=== PATIENT | male | born 1995 | race Caucasian/White ===

== ENCOUNTER 2017-05-07 18:21 | Emergency (ER) | payer MEDICAID ==
--- NOTE | 2017-05-07 20:10 | ED Physician Documentation ---
History of Present Illness - Stated complaint Stated Complaint: RIB PX - Chief complaint Chief Complaint: Resp - History obtained from History obtained from: Patient - History of Present Illness Timing: Enter time (17:00), Today Pain level max: 10 Pain level now: 10 Improved by: rest Worsened by: movement, deep breath in - Additonal information Additional information: c/o left anterolateral chest wall pain since 5 PM. No recent injury. He has been helping build a house, involving a lot of moving of heavy boards, but this was at least one week ago Review of Systems Constitutional: denies: Fever Cardiac: reports: Chest pain / pressure. denies: Palpitations Respiratory: denies: Dyspnea, Cough, Hemoptysis GI: denies: Abdominal Pain, Nausea, Vomiting Skin: denies: Rash Musculoskeletal: denies: Extremity swelling PD PAST MEDICAL HISTORY - Past Medical History Past Medical History: Yes Respiratory: Asthma - Past Surgical History Past Surgical History: No - Present Medications Home Medications: Ambulatory Orders Medication Instructions Recorded Confirmed Albuterol 2.5 mg INH Q4H PRN 05/07/17 05/07/17 Fluticasone 44 Mcg [Flovent] 120 puffs INH 05/07/17 HYDROcod/ACETAM 5/325 [[place] 5/325] 1 - 2 ea PO Q6H PRN #15 tablet 05/07/17 - Allergies Allergies/Adverse Reactions: Allergies Allergy/AdvReac Type Severity Reaction Status Date / Time No Known Drug Allergies Allergy Verified 05/07/17 18:33 - Social History Does the pt smoke?: No Smoking Status: Former smoker Does the pt drink ETOH?: No Does the pt have substance abuse?: No - Immunizations Immunizations are current?: Yes PD ED PE NORMAL - Vitals Vital signs reviewed: Yes - General General: Alert and oriented X 3, No acute distress, Well developed/nourished - Cardiac Cardiac: RRR, No murmur, No gallop, No rub - Respiratory Respiratory: No respiratory distress, Clear bilaterally - Abdomen Abdomen: Soft, Non tender, Non distended - Back Back: No CVA TTP, No spinal TTP - Derm Derm: No rash - Free text exam Free text exam: mild-moderate tenderness left anterolateral chest wall without crepitus, echymosis, or 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 Results - Vitals Vitals: Vital Signs - 24 hr 05/07/17 05/07/17 18:30 20:54 Temperature 36.9 C 37.0 C Heart Rate 93 76 Respiratory 16 18 Rate Blood Pressure 142/86 H 131/84 H O2 Saturation 98 100 Oxygen O2 Source Room air - Rads (name of study) chest xray Radiology: Prelim report reviewed, See rad report PD MEDICAL DECISION MAKING - ED course Complexity details: reviewed results, re-evaluated patient, considered differential, d/w patient Departure - Departure Disposition: Home, Self Care Clinical Impression: Chest pain Qualifiers: Chest pain type: unspecified Qualified Code(s): R07.9 - Chest pain, unspecified Condition: Good Instructions: ED Strain Chest Wall Follow-Up: [facility] [Provider Group] [facility] [Provider Group] Prescriptions: HYDROcod/ACETAM 5/325 [Union 5/325] 1 - 2 ea PO Q6H PRN #15 tablet PRN Reason: Pain Discharge Date/Time: 05/07/17 20:55
--- NOTE | 2017-05-07 20:12 | XRAY Report ---
EXAM: CHEST RADIOGRAPHY EXAM DATE: 05/07/2017 07:32 PM. CLINICAL HISTORY: Rib pain. COMPARISON: None. TECHNIQUE: 2 views. FINDINGS: Lungs/Pleura: No focal opacities evident. No pleural effusion. No pneumothorax. Normal volumes. Mediastinum: Heart and mediastinal contours are unremarkable. Upper lobe vessels not distended. Other: None. IMPRESSION: Normal 2-view chest radiography. [facility] Referring Provider Line: [phone] SITE ID: [id number]
[2017-05-07] MEDS ORDERED: HYDROcod/ACET 5/325 Prepack 6 PO STA (20:32)
[2017-05-07 20:55] VITALS: BP 131/84
== END 2017-05-07 20:55 | disposition home or self-care (01) ==
LOC: ED 18:21
DX: R07.9 Chest pain, unspecified (principal); Z87.891 Personal history of nicotine dependence
CPT/HCPCS: 71046; 99283

== ENCOUNTER 2017-09-14 09:56 | Outpatient (CLI) | payer MEDICAID | END 2017-09-14 09:57 | disposition EMS.NT | LOC: EMS 09:56 | PROVIDERS: ATTEND Surgery | DX: R06.00 Dyspnea, unspecified (principal) ==

== ENCOUNTER 2019-01-21 16:31 | Outpatient (CLI) | payer MEDICAID | END 2019-01-21 16:32 | disposition critical access hospital (66) | LOC: EMS 16:31 | PROVIDERS: ATTEND Surgery | DX: R06.00 Dyspnea, unspecified (principal); R07.89 Other chest pain | CPT/HCPCS: A0425; A0427; A0999 ==

== ENCOUNTER 2019-01-21 17:02 | Emergency (ER) | payer MEDICAID ==
[2019-01-21] MEDS ORDERED: predniSONE 20 MG TABLET PO STA (17:07)
[2019-01-21 17:09] VITALS: BP 142/75
--- NOTE | 2019-01-21 17:09 | ED Physician Documentation ---
PD HPI DYSPNEA - Stated complaint Stated Complaint: ASTHMA - History obtained from History obtained from: Patient, EMS - History of Present Illness Timing - onset: Today (23-year-old gentleman with history of asthma, never hospitalized for same. He ran out of his inhaler a couple of weeks ago. His morning he woke up and he was wheezing and short of breath. For ambulance on the way and his vital signs were normal. He received a DuoNeb in route and feels better.) Review of Systems Constitutional: denies: Fever, Chills Nose: denies: Rhinorrhea / runny nose, Congestion Throat: denies: Sore throat Cardiac: denies: Chest pain / pressure, Palpitations Respiratory: reports: Dyspnea, Cough. denies: Hemoptysis PD PAST MEDICAL HISTORY - Past Medical History Respiratory: Asthma - Past Surgical History Past Surgical History: No - Present Medications Home Medications: Ambulatory Orders Medication Instructions Recorded Confirmed Albuterol 2.5 mg INH Q4H PRN 05/07/17 05/07/17 Fluticasone 44 Mcg [Flovent] 120 puffs INH 05/07/17 HYDROcod/ACETAM 5/325 [[place] 5/325] 1 - 2 ea PO Q6H PRN #15 tablet 05/07/17 Albuterol Sulf [Ventolin Hfa 1 - 2 puffs INH Q4HR PRN #1 inhaler 01/21/19 Inhaler] predniSONE [Deltasone] 60 mg PO DAILY 5 Days #15 tablet 01/21/19 - Allergies Allergies/Adverse Reactions: Allergies Allergy/AdvReac Type Severity Reaction Status Date / Time No Known Drug Allergies Allergy Verified 05/07/17 18:33 - Social History Does the pt smoke?: No Smoking Status: Former smoker Does the pt drink ETOH?: No Does the pt have substance abuse?: No - Immunizations Immunizations are current?: Yes PD ED PE NORMAL - Vitals Vital signs reviewed: Yes - General General: Alert and oriented X 3, No acute distress - HEENT HEENT: Pharynx benign - Neck Neck: Supple, no meningeal sign, No bony TTP - Cardiac Cardiac: RRR, No murmur - Respiratory Respiratory: No respiratory distress, Clear bilaterally - Abdomen Abdomen: Non tender - Derm Derm: No rash - Extremities Extremities: No edema, No calf tenderness / cord - Neuro Neuro: Alert and oriented X 3, Normal speech Results - Vitals Vitals: Oxygen O2 Source Room air PD MEDICAL DECISION MAKING - ED course ED course: Came in by ambulance, at this point his lungs are clear after the DuoNeb and he feels better. Departure - Departure Disposition: 01 Home, Self Care Clinical Impression: Asthma exacerbation Qualifiers: Asthma severity: mild Asthma persistence: intermittent Qualified Code(s): J45.21 - Mild intermittent asthma with (acute) exacerbation Condition: Good Record reviewed to determine appropriate education?: Yes Instructions: Asthma Dc Prescriptions: Albuterol Sulf [Ventolin Hfa Inhaler] 1 - 2 puffs INH Q4HR PRN #1 inhaler PRN Reason: Shortness Of Air/Wheezing predniSONE [Deltasone] 60 mg PO DAILY 5 Days #15 tablet Comments: Call your doctor to arrange a follow-up appointment, make the next available appointment. In the interim, return anytime if worse or if new symptoms develop.
== END 2019-01-21 17:24 | disposition home or self-care (01) ==
LOC: EDUNIT# → ED 17:02
DX: J45.21 Mild intermittent asthma with (acute) exacerbation (principal); Z87.891 Personal history of nicotine dependence
CPT/HCPCS: 99283; J7512

== ENCOUNTER 2019-02-23 10:36 | Outpatient (CLI) | payer MEDICARE, MEDICAID ==
[2019-02-23 17:47] LABS: ALBUMIN 4.6 g/dL (3.2-5.5); ALBUMIN/GLOBULIN RATIO 1.8 (1.0-2.2); BILIRUBIN,TOTAL 0.5 mg/dL (0.2-1.0); CALCIUM 8.8 mg/dL (8.5-10.3); CREATININE 0.8 mg/dL (0.6-1.2); TOTAL PROTEIN 7.2 g/dL (6.7-8.2)
== END 2019-02-23 10:37 | disposition home or self-care (01) ==
LOC: LAB.S 10:36
PROVIDERS: ATTEND Physician Assistant Medical
DX: Z51.81 Encounter for therapeutic drug level monitoring (principal); Z79.899 Other long term (current) drug therapy; E55.9 Vitamin D deficiency, unspecified
CPT/HCPCS: 36415; 80053; 82306

== ENCOUNTER 2021-01-19 09:12 | Outpatient (CLI) | payer MEDICARE, MEDICAID ==
[2021-01-19 15:17] LABS: BUN - BLOOD UREA NITROGEN 10 mg/dL (6-20); CALCIUM 9.1 mg/dL (8.5-10.3); CARBON DIOXIDE - CO2 26 mmol/L (21-32); CHLORIDE 103 mmol/L (101-111); CHOL/HDL RATIO 6.1 (<5.0); CHOLESTEROL 212 mg/dL; CREATININE 0.7 mg/dL (0.6-1.2); GFR - MDRD 139 (>89); GLUCOSE 90 mg/dL (70-100); HDL CHOLESTEROL 35 mg/dL; LDL CHOLESTEROL,CALCULATED 129 mg/dL; LDL/HDL RATIO 3.7 (<3.6); POTASSIUM 4.3 mmol/L (3.5-5.0); SODIUM 140 mmol/L (135-145); TRIGLYCERIDES 238 mg/dL; VLDL CHOLESTEROL 48 mg/dL
[2021-01-19 20:10] LABS: ESTIMATED AVERAGE GLUCOSE 97 mg/dL (70-100)
== END 2021-01-19 09:13 | disposition home or self-care (01) ==
LOC: LAB.S 09:12
PROVIDERS: ATTEND Psychiatry & Neurology Psychiatry
DX: F63.81 Intermittent explosive disorder (principal); F31.81 Bipolar II disorder; Z79.899 Other long term (current) drug therapy
CPT/HCPCS: 36415; 80048; 80061; 83036; 83721

== ENCOUNTER 2022-06-26 09:16 | Outpatient (CLI) | payer MEDICARE, MEDICAID ==
[2022-06-26 15:39] LABS: BASOPHILS # (AUTO) 0.1 10^3/uL (0.0-0.1); BASOPHILS % (AUTO) 1.5 %; EOSINOPHILS # (AUTO) 0.6 10^3/uL (0.0-0.7); EOSINOPHILS % (AUTO) 9.3 %; HCT - HEMATOCRIT 48.6 % (42.0-52.0); HGB - HEMOGLOBIN 16.5 g/dL (14.0-18.0); LYMPHOCYTES # (AUTO) 1.9 10^3/uL (1.5-3.5); LYMPHOCYTES % (AUTO) 28.8 %; MEAN CORPUSCULAR VOLUME 94.4 fL (80.0-94.0); MEAN PLATELET VOLUME 10.8 fL (7.4-11.4); MONOCYTES # (AUTO) 0.7 10^3/uL (0.0-1.0); MONOCYTES % (AUTO) 10.4 %; NEUTROPHILS # (AUTO) 3.3 10^3/uL (1.5-6.6); NEUTROPHILS % (AUTO) 49.7 %; PLT - PLATELET COUNT 222 10^3/uL (130-450); RED BLOOD COUNT 5.15 10^6/uL (4.70-6.10); RED CELL DISTRIBUTION WIDTH 12.5 % (12.0-15.0); WHITE BLOOD COUNT 6.6 x10^3/uL (4.8-10.8)
[2022-06-26 16:16] LABS: ALBUMIN 4.3 g/dL (3.2-5.5); ALBUMIN/GLOBULIN RATIO 1.4 (1.0-2.2); BILIRUBIN,TOTAL 0.7 mg/dL (0.2-1.0); CREATININE 0.8 mg/dL (0.6-1.2); POTASSIUM 4.5 mmol/L (3.5-5.0); TOTAL PROTEIN 7.4 g/dL (6.7-8.2)
== END 2022-06-26 09:17 | disposition home or self-care (01) ==
LOC: LAB.S 09:16
PROVIDERS: ATTEND Registered Nurse
DX: R03.0 Elevated blood-pressure reading, without diagnosis of hypertension (principal); Z79.899 Other long term (current) drug therapy
CPT/HCPCS: 36415; 80053; 85025

== ENCOUNTER 2023-01-24 14:40 | Outpatient (CLI) | payer MEDICARE, MEDICAID | END 2023-01-24 14:41 | disposition EMS.NT | LOC: EMS 14:40 | DX: R53.1 Weakness (principal); R07.9 Chest pain, unspecified ==

== ENCOUNTER 2023-01-26 08:01 | Emergency (ER) | payer MEDICARE, MEDICAID ==
[2023-01-26] MEDS ORDERED: ONDANSETRON 4 MG/2 ML VIAL IVP STA (08:16)
[2023-01-26] MEDS ORDERED: KETOROLAC 15 MG/ML VIAL IVP STA (08:16)
[2023-01-26] MEDS ORDERED: SODIUM CHLORIDE 0.9% 1,000 ML IV STA (08:16)
--- NOTE | 2023-01-26 08:17 | ED Physician Documentation ---
PD HPI ABD PAIN - Stated complaint Stated Complaint: N/V - Chief complaint Chief Complaint: Abd Pain - History obtained from History obtained from: Patient, Family - Additional information Additional information: 27-year-old gentleman with history of psychiatric disease on Risperdal and Depakote, daily marijuana use, and somewhat heavy alcohol use lately. He was last sober 5 days ago. In the interim he has had between 2-5 drinks a day. He woke up this morning at 12:40 AM with diarrhea and vomiting and stomach cramps which have since resolved. No sick contacts. No fevers. PD PAST MEDICAL HISTORY - Past Medical History Past Medical History: Yes Respiratory: Asthma Psych: Depression, Anxiety, Bipolar disorder - Past Surgical History Past Surgical History: No - Present Medications Home Medications: Ambulatory Orders Medication Instructions Recorded Confirmed Divalproex Sodium [Depakote ER] 500 mg PO DAILY 01/26/23 01/26/23 Ondansetron Odt [Zofran] 4 mg TL Q6H PRN #10 tablet 01/26/23 risperiDONE [RisperDAL] 1 mg PO QPM 01/26/23 01/26/23 - Allergies Allergies/Adverse Reactions: Allergies Allergy/AdvReac Type Severity Reaction Status Date / Time bupropion [From Wellbutrin] AdvReac Unknown Verified 01/26/23 08:08 - Social History Does the pt smoke?: Yes Smoking Status: Current every day smoker Does the pt drink ETOH?: No Does the pt have substance abuse?: No - Immunizations Immunizations are current?: Yes PD ED PE NORMAL - Vitals Vital signs reviewed: Yes - General General: Alert and oriented X 3, No acute distress - HEENT HEENT: PERRL, EOMI - Cardiac Cardiac: RRR, No murmur - Respiratory Respiratory: No respiratory distress, Clear bilaterally - Abdomen Abdomen: Soft, Non tender - Neuro Neuro: Alert and oriented X 3, Other (He does not appear shaky, no tongue fasciculations.) Results - Vitals Vitals: Vital Signs - 24 hr 01/26/23 08:06 Temperature 36.1 C L Heart Rate 70 Respiratory 16 Rate Blood Pressure 144/50 H O2 Saturation 98 Oxygen O2 Source Room air - Labs Labs: Laboratory Tests 01/26/23 08:24 Sodium 140 Potassium 4.0 Chloride 100 L Carbon Dioxide 29 Anion Gap 11.0 BUN 16 Creatinine 0.9 Estimated GFR (MDRD) 102 Glucose 131 H Calcium 10.5 H Total Bilirubin 0.8 AST 71 H ALT 99 H Alkaline Phosphatase 71 Total Protein 7.8 Albumin 5.4 Globulin 2.4 Albumin/Globulin Ratio 2.3 H Lipase < 10 L PD Medical Decision Making - ED course ED course: Seeming more like simple gastroenteritis than alcohol withdrawal, he is not tachycardic or shaky. We will give him IV fluids and Zofran and Toradol and recheck. He is worried about his liver and seems reasonable to check labs. 27-year-old gentleman presents with what sounds like gastroenteritis. He is worried about his alcohol consumption. ER abdominal panel does show mild transaminitis which is new from prior labs and decreasing alcohol consumption was advised. He is feeling much better after IV fluids, Toradol, and IV Zofran and passed a p.o. challenge. Departure - Departure Disposition: 01 Home, Self Care Clinical Impression: Gastroenteritis Condition: Good Record reviewed to determine appropriate education?: Yes Instructions: ED Gastroenteritis Viral Prescriptions: Ondansetron Odt [Zofran] 4 mg TL Q6H PRN #10 tablet PRN Reason: Nausea / Vomiting Comments: Call your doctor to arrange a follow-up appointment, make the next available appointment. In the interim, return anytime if worse or if new symptoms develop. Forms: PCP List
[2023-01-26 08:54] LABS: ALBUMIN 5.4 g/dL (3.2-5.5); ALBUMIN/GLOBULIN RATIO 2.3 (1.0-2.2); ALKALINE PHOSPHATASE 71 IU/L (42-121); ALT ALANINE AMINOTRANSFERASE 99 IU/L (10-60); AST ASPARTATE AMINOTRANSFERASE 71 IU/L (10-42); BILIRUBIN,TOTAL 0.8 mg/dL (0.2-1.0); BUN - BLOOD UREA NITROGEN 16 mg/dL (6-20); CALCIUM 10.5 mg/dL (8.5-10.3); CARBON DIOXIDE - CO2 29 mmol/L (21-32); CHLORIDE 100 mmol/L (101-111); CREATININE 0.9 mg/dL (0.6-1.3); GFR - MDRD 102 (>89); GLUCOSE 131 mg/dL (74-104); SODIUM 140 mmol/L (135-145); TOTAL PROTEIN 7.8 g/dL (6.4-8.9)
[2023-01-26 09:00] LABS: LIPASE < 10 U/L (11-82)
[2023-01-26 09:36] VITALS: BP 121/82; O2SAT 99
== END 2023-01-26 09:28 | disposition home or self-care (01) ==
LOC: ED 08:01
DX: K52.9 Noninfective gastroenteritis and colitis, unspecified (principal); F17.200 Nicotine dependence, unspecified, uncomplicated
CPT/HCPCS: 36415; 80053; 83690; 96374; 99283

== ENCOUNTER 2023-01-26 12:30 | Emergency (ER) | payer MEDICARE, MEDICAID ==
[2023-01-26 13:05] VITALS: O2SAT 99
[2023-01-26] MEDS ORDERED: PANTOPRAZOLE 40 MG VIAL IVP STA (13:34)
[2023-01-26] MEDS ORDERED: SODIUM CHLORIDE 0.9% 1,000 ML IV STA (13:34)
[2023-01-26] MEDS ORDERED: DROPERIDOL 5 MG/2 ML VIAL IVP STA (13:34)
--- NOTE | 2023-01-26 13:35 | ED Physician Documentation ---
PD HPI ABD PAIN - Stated complaint Stated Complaint: N/V,YANES - Chief complaint Chief Complaint: Abd Pain - History obtained from History obtained from: Patient (Seen earlier this morning for what sounds like gastroenteritis. He did well but ended up vomiting several times and he feels like the Zofran is making him worse. The vomit was dark in color) PD PAST MEDICAL HISTORY - Past Medical History Respiratory: Asthma Psych: Depression, Anxiety, Bipolar disorder - Past Surgical History Past Surgical History: No - Present Medications Home Medications: Ambulatory Orders Medication Instructions Recorded Confirmed Divalproex Sodium [Depakote ER] 500 mg PO DAILY 01/26/23 01/26/23 Metoclopramide [Reglan] 10 mg PO Q6H PRN #10 tablet 01/26/23 Ondansetron Odt [Zofran] 4 mg TL Q6H PRN #10 tablet 01/26/23 risperiDONE [RisperDAL] 1 mg PO QPM 01/26/23 01/26/23 - Allergies Allergies/Adverse Reactions: Allergies Allergy/AdvReac Type Severity Reaction Status Date / Time bupropion [From Wellbutrin] AdvReac Unknown Verified 01/26/23 08:08 - Social History Does the pt smoke?: Yes Smoking Status: Current every day smoker Does the pt drink ETOH?: No Does the pt have substance abuse?: No - Immunizations Immunizations are current?: Yes PD ED PE NORMAL - Vitals Vital signs reviewed: Yes - General General: Alert and oriented X 3, No acute distress - Abdomen Abdomen: Normal bowel sounds, Soft, Non tender - Neuro Neuro: Alert and oriented X 3 Results - Vitals Vitals: Vital Signs - 24 hr 01/26/23 12:59 Temperature 36.3 C L Heart Rate 76 Respiratory 20 Rate Blood Pressure 151/76 H O2 Saturation 99 Oxygen O2 Source Room air - Labs Labs: Laboratory Tests 01/26/23 01/26/23 13:58 13:58 WBC 8.0 RBC 4.92 Hgb 16.0 Hct 46.3 MCV 94.1 H MCH 32.5 H MCHC 34.6 RDW 12.1 Plt Count 185 MPV 10.7 Neut # (Auto) 6.6 Lymph # (Auto) 0.6 L [place] # (Auto) 0.7 Eos # (Auto) 0.0 Baso # (Auto) 0.0 Absolute Nucleated RBC 0.00 Nucleated RBC % 0.0 Sodium 137 Potassium 3.9 Chloride 100 L Carbon Dioxide 29 Anion Gap 8.0 BUN 15 Creatinine 0.9 Estimated GFR (MDRD) 102 Glucose 102 Calcium 10.3 Total Bilirubin 0.7 AST 56 H ALT 85 H Alkaline Phosphatase 64 Total Protein 7.3 Albumin 5.1 Globulin 2.2 Albumin/Globulin Ratio 2.3 H Lipase < 10 L PD Medical Decision Making - ED course ED course: 27-year-old gentleman "bounces back" after treated this morning for gastroenteritis and did not tolerate Zofran well. He did better after droperidol and another liter of fluids here. The vomit is dark but his CBC is unchanged with hemoglobin of 16, and his CMP showing slightly improved transaminitis over this morning otherwise negative. Departure - Departure Disposition: 01 Home, Self Care Clinical Impression: Gastroenteritis Condition: Good Record reviewed to determine appropriate education?: Yes Instructions: ED Gastroenteritis Viral Prescriptions: Metoclopramide [Reglan] 10 mg PO Q6H PRN #10 tablet PRN Reason: nausea or headache Comments: I sent a prescription for a different nausea medicine down to the [facility] in [place]. Return if worse or if not better over the next day. Forms: PCP List
[2023-01-26 14:04] LABS: BASOPHILS % (AUTO) 0.4 %; EOSINOPHILS % (AUTO) 0.1 %; HCT - HEMATOCRIT 46.3 % (42.0-52.0); LYMPHOCYTES # (AUTO) 0.6 10^3/uL (1.5-3.5); LYMPHOCYTES % (AUTO) 7.2 %; MEAN CORPUSCULAR HEMOGLOBIN 32.5 pg (27.0-31.0); MEAN CORPUSCULAR HGB CONC 34.6 g/dL (32.0-36.0); MEAN CORPUSCULAR VOLUME 94.1 fL (80.0-94.0); MEAN PLATELET VOLUME 10.7 fL (7.4-11.4); MONOCYTES # (AUTO) 0.7 10^3/uL (0.0-1.0); MONOCYTES % (AUTO) 8.8 %; NEUTROPHILS # (AUTO) 6.6 10^3/uL (1.5-6.6); NEUTROPHILS % (AUTO) 83.2 %; PLT - PLATELET COUNT 185 10^3/uL (130-450); RED BLOOD COUNT 4.92 10^6/uL (4.70-6.10); RED CELL DISTRIBUTION WIDTH 12.1 % (12.0-15.0)
[2023-01-26 14:17] LABS: ALBUMIN 5.1 g/dL (3.2-5.5); ALBUMIN/GLOBULIN RATIO 2.3 (1.0-2.2); ALKALINE PHOSPHATASE 64 IU/L (42-121); ALT ALANINE AMINOTRANSFERASE 85 IU/L (10-60); AST ASPARTATE AMINOTRANSFERASE 56 IU/L (10-42); BILIRUBIN,TOTAL 0.7 mg/dL (0.2-1.0); BUN - BLOOD UREA NITROGEN 15 mg/dL (6-20); CALCIUM 10.3 mg/dL (8.5-10.3); CARBON DIOXIDE - CO2 29 mmol/L (21-32); CHLORIDE 100 mmol/L (101-111); CREATININE 0.9 mg/dL (0.6-1.3); GFR - MDRD 102 (>89); GLUCOSE 102 mg/dL (74-104); POTASSIUM 3.9 mmol/L (3.5-4.5); SODIUM 137 mmol/L (135-145); TOTAL PROTEIN 7.3 g/dL (6.4-8.9)
[2023-01-26 14:23] LABS: LIPASE < 10 U/L (11-82)
[2023-01-26 15:34] VITALS: BP 123/69
== END 2023-01-26 15:27 | disposition home or self-care (01) ==
LOC: ED 12:30
DX: K52.9 Noninfective gastroenteritis and colitis, unspecified (principal); F17.200 Nicotine dependence, unspecified, uncomplicated
CPT/HCPCS: 36415; 80053; 83690; 85025; 96374; 96375; 99283

== ENCOUNTER 2023-01-27 10:10 | Outpatient (CLI) | payer MEDICARE, MEDICAID ==
[2023-01-27 14:55] LABS: BASOPHILS # (AUTO) 0.1 10^3/uL (0.0-0.1); BASOPHILS % (AUTO) 1.2 %; EOSINOPHILS # (AUTO) 0.3 10^3/uL (0.0-0.7); EOSINOPHILS % (AUTO) 4.3 %; HCT - HEMATOCRIT 46.3 % (42.0-52.0); HGB - HEMOGLOBIN 15.6 g/dL (14.0-18.0); MEAN CORPUSCULAR HEMOGLOBIN 33.5 pg (27.0-31.0); MEAN CORPUSCULAR HGB CONC 33.7 g/dL (32.0-36.0); MEAN CORPUSCULAR VOLUME 99.4 fL (80.0-94.0); MEAN PLATELET VOLUME 11.7 fL (7.4-11.4); MONOCYTES # (AUTO) 0.8 10^3/uL (0.0-1.0); MONOCYTES % (AUTO) 10.1 %; NEUTROPHILS # (AUTO) 4.5 10^3/uL (1.5-6.6); NEUTROPHILS % (AUTO) 58.1 %; PLT - PLATELET COUNT 187 10^3/uL (130-450); RED BLOOD COUNT 4.66 10^6/uL (4.70-6.10); RED CELL DISTRIBUTION WIDTH 12.7 % (12.0-15.0); WHITE BLOOD COUNT 7.7 x10^3/uL (4.8-10.8)
[2023-01-27 16:49] LABS: ALBUMIN 4.9 g/dL (3.2-5.5); ALBUMIN/GLOBULIN RATIO 2.3 (1.0-2.2); ALKALINE PHOSPHATASE 61 IU/L (42-121); ALT ALANINE AMINOTRANSFERASE 93 IU/L (10-60); AST ASPARTATE AMINOTRANSFERASE 67 IU/L (10-42); BILIRUBIN,TOTAL 0.7 mg/dL (0.2-1.0); BUN - BLOOD UREA NITROGEN 8 mg/dL (6-20); CALCIUM 9.8 mg/dL (8.5-10.3); CARBON DIOXIDE - CO2 30 mmol/L (21-32); CHLORIDE 99 mmol/L (101-111); CREATININE 0.8 mg/dL (0.6-1.3); GFR - MDRD 117 (>89); GLUCOSE 89 mg/dL (74-104); POTASSIUM 3.2 mmol/L (3.5-4.5); SODIUM 138 mmol/L (135-145); VALPROIC ACID (DEPAKOTE) 9.8 ug/mL
== END 2023-01-27 10:11 | disposition home or self-care (01) ==
LOC: LAB.S 10:10
PROVIDERS: ATTEND Student in an Organized Health Care Education/Training Program
DX: F63.81 Intermittent explosive disorder (principal); T42.6X5D Adverse effect of other antiepileptic and sedative-hypnotic drugs, subsequent encounter
CPT/HCPCS: 36415; 80053; 80164; 85025

== ENCOUNTER 2023-05-09 11:01 | Outpatient (CLI) | payer MEDICARE, MEDICAID ==
[2023-05-09 15:25] LABS: BASOPHILS # (AUTO) 0.1 10^3/uL (0.0-0.1); BASOPHILS % (AUTO) 1.5 %; EOSINOPHILS # (AUTO) 0.6 10^3/uL (0.0-0.7); EOSINOPHILS % (AUTO) 9.1 %; HCT - HEMATOCRIT 45.7 % (42.0-52.0); HGB - HEMOGLOBIN 15.4 g/dL (14.0-18.0); LYMPHOCYTES # (AUTO) 2.4 10^3/uL (1.5-3.5); LYMPHOCYTES % (AUTO) 34.5 %; MEAN CORPUSCULAR HEMOGLOBIN 32.5 pg (27.0-31.0); MEAN CORPUSCULAR HGB CONC 33.7 g/dL (32.0-36.0); MEAN CORPUSCULAR VOLUME 96.4 fL (80.0-94.0); MEAN PLATELET VOLUME 11.6 fL (7.4-11.4); MONOCYTES # (AUTO) 0.6 10^3/uL (0.0-1.0); MONOCYTES % (AUTO) 8.8 %; NEUTROPHILS # (AUTO) 3.1 10^3/uL (1.5-6.6); NEUTROPHILS % (AUTO) 45.8 %; PLT - PLATELET COUNT 223 10^3/uL (130-450); RED BLOOD COUNT 4.74 10^6/uL (4.70-6.10); RED CELL DISTRIBUTION WIDTH 12.3 % (12.0-15.0); WHITE BLOOD COUNT 6.8 x10^3/uL (4.8-10.8)
== END 2023-05-09 11:02 | disposition home or self-care (01) ==
LOC: LAB.S 11:01
PROVIDERS: ATTEND Student in an Organized Health Care Education/Training Program
DX: F63.81 Intermittent explosive disorder (principal); F10.20 Alcohol dependence, uncomplicated
CPT/HCPCS: 36415; 85025

== ENCOUNTER 2023-06-24 13:25 | Outpatient (CLI) | payer MEDICARE, MEDICAID ==
[2023-06-24 20:16] LABS: BASOPHILS # (AUTO) 0.1 10^3/uL (0.0-0.1); BASOPHILS % (AUTO) 1.4 %; EOSINOPHILS # (AUTO) 0.5 10^3/uL (0.0-0.7); EOSINOPHILS % (AUTO) 8.3 %; HCT - HEMATOCRIT 50.2 % (42.0-52.0); HGB - HEMOGLOBIN 16.6 g/dL (14.0-18.0); LYMPHOCYTES # (AUTO) 2.3 10^3/uL (1.5-3.5); LYMPHOCYTES % (AUTO) 39.7 %; MEAN CORPUSCULAR HEMOGLOBIN 32.3 pg (27.0-31.0); MEAN CORPUSCULAR HGB CONC 33.1 g/dL (32.0-36.0); MEAN CORPUSCULAR VOLUME 97.7 fL (80.0-94.0); MEAN PLATELET VOLUME 11.1 fL (7.4-11.4); MONOCYTES # (AUTO) 0.5 10^3/uL (0.0-1.0); NEUTROPHILS # (AUTO) 2.4 10^3/uL (1.5-6.6); NEUTROPHILS % (AUTO) 41.4 %; PLT - PLATELET COUNT 222 10^3/uL (130-450); RED BLOOD COUNT 5.14 10^6/uL (4.70-6.10); WHITE BLOOD COUNT 5.8 x10^3/uL (4.8-10.8)
[2023-06-24 20:26] LABS: ALBUMIN 4.8 g/dL (3.2-5.5); ALBUMIN/GLOBULIN RATIO 1.8 (1.0-2.2); BILIRUBIN,TOTAL 0.3 mg/dL (0.2-1.0); CALCIUM 9.8 mg/dL (8.5-10.3); CREATININE 0.7 mg/dL (0.6-1.3); TOTAL PROTEIN 7.5 g/dL (6.4-8.9)
== END 2023-06-24 13:26 | disposition home or self-care (01) ==
LOC: LAB.S 13:25
PROVIDERS: ATTEND Student in an Organized Health Care Education/Training Program
DX: F63.81 Intermittent explosive disorder (principal); F10.20 Alcohol dependence, uncomplicated
CPT/HCPCS: 36415; 80053; 85025

== ENCOUNTER 2023-08-11 09:28 | Outpatient (CLI) | payer MEDICARE, MEDICAID ==
[2023-08-11 15:19] LABS: BASOPHILS # (AUTO) 0.2 10^3/uL (0.0-0.1); BASOPHILS % (AUTO) 2.2 %; EOSINOPHILS # (AUTO) 0.6 10^3/uL (0.0-0.7); HCT - HEMATOCRIT 48.3 % (42.0-52.0); HGB - HEMOGLOBIN 16.2 g/dL (14.0-18.0); LYMPHOCYTES # (AUTO) 2.1 10^3/uL (1.5-3.5); LYMPHOCYTES % (AUTO) 30.4 %; MEAN CORPUSCULAR HEMOGLOBIN 32.7 pg (27.0-31.0); MEAN CORPUSCULAR HGB CONC 33.5 g/dL (32.0-36.0); MEAN CORPUSCULAR VOLUME 97.6 fL (80.0-94.0); MEAN PLATELET VOLUME 11.8 fL (7.4-11.4); MONOCYTES # (AUTO) 0.7 10^3/uL (0.0-1.0); MONOCYTES % (AUTO) 10.9 %; NEUTROPHILS # (AUTO) 3.2 10^3/uL (1.5-6.6); NEUTROPHILS % (AUTO) 47.2 %; PLT - PLATELET COUNT 196 10^3/uL (130-450); RED BLOOD COUNT 4.95 10^6/uL (4.70-6.10); WHITE BLOOD COUNT 6.8 x10^3/uL (4.8-10.8)
[2023-08-11 15:28] LABS: ALBUMIN 4.7 g/dL (3.2-5.5); ALBUMIN/GLOBULIN RATIO 2.5 (1.0-2.2); ALKALINE PHOSPHATASE 61 IU/L (42-121); ALT ALANINE AMINOTRANSFERASE 108 IU/L (10-60); AST ASPARTATE AMINOTRANSFERASE 49 IU/L (10-42); BILIRUBIN,TOTAL 0.6 mg/dL (0.2-1.0); BUN - BLOOD UREA NITROGEN 15 mg/dL (6-20); CALCIUM 9.9 mg/dL (8.5-10.3); CARBON DIOXIDE - CO2 29 mmol/L (21-32); CHLORIDE 102 mmol/L (101-111); CHOL/HDL RATIO 3.2 (<5.0); CHOLESTEROL 171 mg/dL; CREATININE 0.8 mg/dL (0.6-1.3); GFR - MDRD 116 (>89); GLUCOSE 87 mg/dL (74-104); HDL CHOLESTEROL 53 mg/dL; LDL CHOLESTEROL,CALCULATED 98 mg/dL; LDL/HDL RATIO 1.8 (<3.6); SODIUM 138 mmol/L (135-145); TOTAL PROTEIN 6.6 g/dL (6.4-8.9); TRIGLYCERIDES 101 mg/dL (48-352); VLDL CHOLESTEROL 20 mg/dL
[2023-08-11 15:44] LABS: THYROID STIMULATING HORMONE 3.45 uIU/mL (0.34-5.60)
== END 2023-08-11 09:29 | disposition home or self-care (01) ==
LOC: LAB.S 09:28
PROVIDERS: ATTEND Registered Nurse
DX: Z13.220 Encounter for screening for lipoid disorders (principal); Z79.899 Other long term (current) drug therapy; Z13.29 Encounter for screening for other suspected endocrine disorder
CPT/HCPCS: 36415; 80053; 80061; 83721; 84443; 85025

== ENCOUNTER 2023-11-11 22:54 | Emergency (ER) | payer MEDICARE, MEDICAID ==
[2023-11-11 23:21] LABS: BASOPHILS # (AUTO) 0.1 10^3/uL (0.0-0.1); BASOPHILS % (AUTO) 1.1 %; EOSINOPHILS # (AUTO) 0.1 10^3/uL (0.0-0.7); EOSINOPHILS % (AUTO) 0.5 %; HCT - HEMATOCRIT 47.3 % (42.0-52.0); HGB - HEMOGLOBIN 16.6 g/dL (14.0-18.0); LYMPHOCYTES # (AUTO) 0.9 10^3/uL (1.5-3.5); LYMPHOCYTES % (AUTO) 7.4 %; MEAN CORPUSCULAR HEMOGLOBIN 32.4 pg (27.0-31.0); MEAN CORPUSCULAR HGB CONC 35.1 g/dL (32.0-36.0); MEAN CORPUSCULAR VOLUME 92.4 fL (80.0-94.0); MEAN PLATELET VOLUME 11.2 fL (7.4-11.4); MONOCYTES # (AUTO) 0.4 10^3/uL (0.0-1.0); MONOCYTES % (AUTO) 3.2 %; NEUTROPHILS # (AUTO) 10.9 10^3/uL (1.5-6.6); NEUTROPHILS % (AUTO) 87.4 %; PLT - PLATELET COUNT 204 10^3/uL (130-450); RED BLOOD COUNT 5.12 10^6/uL (4.70-6.10); RED CELL DISTRIBUTION WIDTH 11.5 % (12.0-15.0); WHITE BLOOD COUNT 12.4 x10^3/uL (4.8-10.8)
[2023-11-11 23:35] LABS: ALBUMIN 4.9 g/dL (3.2-5.5); BILIRUBIN,TOTAL 0.9 mg/dL (0.2-1.0); CALCIUM 10.3 mg/dL (8.5-10.3); CREATININE 0.9 mg/dL (0.6-1.3); POTASSIUM 3.6 mmol/L (3.5-4.5); TOTAL PROTEIN 7.3 g/dL (6.4-8.9)
[2023-11-11 23:37] VITALS: O2SAT 99
--- NOTE | 2023-11-11 23:51 | ED Physician Documentation ---
PD HPI NVD - Stated complaint Stated Complaint: VOMITING - Chief complaint Chief Complaint: Abd Pain - History obtained from History obtained from: Patient - Additonal information Additional information: HPI from patient. Patient complains of nausea, vomiting, and abdominal cramping x 1 to 2 days. Patient says he drank approximately 6 beers (25 ounce each) over the weekend but did not drink yesterday nor today due to the nausea and vomiting. Patient says he has been diagnosed as alcoholic and drinks on a daily basis; he cannot recall the last time he had 24 or more hours without drinking alcohol (until two days ago). Denies fever, bloody/coffee-ground emesis, bloody/black tarry stools. Nausea and vomiting are exacerbated with any p.o. intake, and patient says he has not been able to tolerate any p.o. since this afternoon. Patient was treated and released from this emergency department last January for same symptoms. He had 2 visits on that day, returning the same day due to ongoing nausea and vomiting despite ondansetron. Review of Systems Constitutional: reports: Sweats. denies: Fever Cardiac: reports: Reviewed and negative Respiratory: reports: Reviewed and negative GI: reports: Abdominal Pain, Nausea, Vomiting. denies: Abdominal Swelling, Constipation, Diarrhea, Hematemesis, Bloody / black stool PD PAST MEDICAL HISTORY - Past Medical History Past Medical History: Yes Cardiovascular: None Respiratory: Asthma Neuro: None Endocrine/Autoimmune: None GI: None : None HEENT: None Psych: Depression, Anxiety, Bipolar disorder Musculoskeletal: None Derm: None - Past Surgical History Past Surgical History: No - Present Medications Home Medications: Ambulatory Orders Medication Instructions Recorded Confirmed lamoTRIgine [LaMICtal] 25 mg PO DAILY 11/11/23 Promethazine [Phenergan] 25 mg PO Q6H PRN #10 tab 11/12/23 - Allergies Allergies/Adverse Reactions: Allergies Allergy/AdvReac Type Severity Reaction Status Date / Time No Known Drug Allergies Allergy Verified 11/11/23 23:04 - Social History Does the pt smoke?: Yes Smoking Status: Current every day smoker Does the pt drink ETOH?: Yes Does the pt have substance abuse?: No - Immunizations Immunizations are current?: Yes - POLST Patient has POLST: No PD ED PE NORMAL - Vitals Vital signs reviewed: Yes - General General: Alert and oriented X 3, Well developed/nourished, Other (diaphoretic but otherwise NAD) - HEENT HEENT: Other (dry mucous membranes) - Neck Neck: Supple, no meningeal sign - Cardiac Cardiac: RRR, No murmur - Respiratory Respiratory: No respiratory distress, Clear bilaterally - Abdomen Abdomen: Soft, Non tender, Non distended - Derm Derm: Normal color Results - Vitals Vitals: Vital Signs - 24 hr 11/11/23 11/11/23 11/12/23 22:55 23:21 01:06 Temperature 36.4 C L Heart Rate 63 55 L 40 L Respiratory 17 18 12 Rate Blood Pressure 154/61 H 131/91 H 137/87 H O2 Saturation 100 99 99 11/12/23 11/12/23 02:00 03:00 Temperature Heart Rate 45 L 55 L Respiratory 14 16 Rate Blood Pressure 137/89 H 144/88 H O2 Saturation 99 99 Oxygen O2 Source Room air - Labs Labs: Laboratory Tests 11/11/23 11/11/23 23:17 23:17 WBC 12.4 H RBC 5.12 Hgb 16.6 Hct 47.3 MCV 92.4 MCH 32.4 H MCHC 35.1 RDW 11.5 L Plt Count 204 MPV 11.2 Neut # (Auto) 10.9 H Lymph # (Auto) 0.9 L [place] # (Auto) 0.4 Eos # (Auto) 0.1 Baso # (Auto) 0.1 Absolute Nucleated RBC 0.00 Nucleated RBC % 0.0 Sodium 138 Potassium 3.6 Chloride 101 Carbon Dioxide 25 Anion Gap 12.0 BUN 16 Creatinine 0.9 Estimated GFR (MDRD) 101 Glucose 145 H Calcium 10.3 Total Bilirubin 0.9 AST 25 ALT 39 Alkaline Phosphatase 57 Total Protein 7.3 Albumin 4.9 Globulin 2.4 Albumin/Globulin Ratio 2.0 Lipase 10 L PD Medical Decision Making - ED course Complexity details: reviewed old records, reviewed results, re-evaluated patient, considered differential, d/w patient ED course: Mild leukocytosis (WBC 12.4) on otherwise unremarkable CBC. Normal ER abdominal panel with insignificant exception of mild hyperglycemia (145); normal liver function tests. Lipase is flagged as low (<10). Patient is not describing or exhibiting signs/symptoms consistent with alcohol withdrawal, although this is likely contributing to his symptoms given his daily alcohol intake that suddenly stopped 48 hours ago. The most likely etiology is alcoholic gastritis. He is given 1 L normal saline IV, 2.5 mg droperidol IV, 40 mg Protonix IV. We discussed benzodiazepines (specifically lorazepam, for the possible contributing factor of alcohol withdrawal), but he says he does not want any benzodiaezpines (he says he does not feel he needs them). The droperidol is given due to patient reporting that the last time he had the symptoms, he feels that the Zofran made his nausea vomiting worse. On reevaluation, results discussed with patient. He is no longer diaphoretic but still feels very nauseous. His mucous membranes are still dry after the fluid bolus, and he is thus given a second liter of normal saline IV. He is also given 25 mg IV promethazine. On a subsequent reevaluation, the patient is now in NAD and reports significant improvement in his symptoms. At this point, he is comfortable being discharged home. I have electronically submitted a prescription for Phenergan to patient's pharmacy of choice. Return precautions are reviewed. He is not interested in detox/inpatient treatment for his alcoholism at this time, but is provided contact information for [facility] should he decide to go that route. Departure - Departure Disposition: 01 Home, Self Care Clinical Impression: Alcoholic gastritis Condition: Good Instructions: ED Gastritis Prescriptions: Promethazine [Phenergan] 25 mg PO Q6H PRN #10 tab PRN Reason: Nausea / Vomiting Comments: There were no concerning findings on tonight's blood tests. I suspect your symptoms are due to irritation of your stomach lining (gastritis) which, in turn, is most likely due to your regular/heavy alcohol intake. Contact your primary care provider in the morning when the office opens to arrange for a follow-up/reevaluation appointment, ideally with an 1 week. As we discussed, if you are not interested in help with detox And/or quitting alcohol use, 1 option is the [facility] stabilization center in [place]. The address and contact phone number for this facility are below. I have electronically submitted a prescription for promethazine (antinausea medication) to the [facility] pharmacy in [place]. You should also take an acid- blocking medication once per day for the next 2 weeks, specifically Nexium or Prilosec. These are available [id number] and thus no prescription is necessary. [facility] [address] [place] [address] Main The [facility] offers a monitored and safe setting for individuals withdrawing from alcohol and drugs, and counseling for individuals experiencing a mental health crisis. All services are provided in a 10-bed facility where intensive medical monitoring is required along with stabilization services. The goal of these services is to assess a clients mental health and substance use disorder related needs, and assist them in accessing the services they need to recover. Forms: PCP List Discharge Date/Time: 11/12/23 03:23
[2023-11-12] MEDS: SODIUM CHLORIDE 0.9% 1,000 ML IV STA ×2 (00:41→02:02)
[2023-11-12] MEDS: PANTOPRAZOLE 40 MG VIAL IVP STA (00:41)
[2023-11-12] MEDS: DROPERIDOL 5 MG/2 ML VIAL IVP STA (00:43)
[2023-11-12] MEDS ORDERED: PROMETHAZINE 25 MG/1 ML VIAL ONE (02:01)
[2023-11-12] MEDS: PROMETHAZINE INJ 25 MG in SODIUM CHLORIDE 0.9% 50 ML IV STA (02:02)
[2023-11-12 03:17] VITALS: BP 144/88
== END 2023-11-12 03:23 | disposition home or self-care (01) ==
LOC: ED 22:54
DX: K29.20 Alcoholic gastritis without bleeding (principal); D72.829 Elevated white blood cell count, unspecified; R73.9 Hyperglycemia, unspecified; F17.200 Nicotine dependence, unspecified, uncomplicated; Z79.899 Other long term (current) drug therapy
CPT/HCPCS: 36415; 80053; 83690; 85025; 96361; 96365; 96375; 99284